=== PATIENT | male | born 1955 | race Caucasian/White ===

== ENCOUNTER 2019-01-14 04:49 | Inpatient (IN) | payer MEDICARE, SELFPAY ==
[2019-01-14] VITALS (13 sets, daily range): BP systolic 101–153; BP diastolic 65–90; PULSE 79–92; RESP 16–22; TEMP 36.6–37.7; O2SAT 92–99; BMI 24.8
--- NOTE | 2019-01-14 05:13 | CT_ITS ---
STUDY: CT ABDOMEN AND PELVIS WITH CONTRAST REASON FOR EXAM: Male, 63 years old. Elevated WBC, abdominal pain, Alzheimer RADIATION DOSAGE (If Supplied By Facility): CTDIvol = ( 16.35 ) mGy, DLP = ( 1398.15 ) mGycm TECHNIQUE: Transaxial 3.75 mm images were obtained from the dome of the diaphragm to the symphysis pubis without oral contrast. 100ML IV Isovue 300 was administered. Sagittal and coronal images were reconstructed. There is image blurring as a result of patient motion. Diagnostic accuracy is somewhat reduced. However, there is substantial diagnostic information remaining available on this study. Individualized dose optimization techniques were used for this CT. COMPARISON: None. FINDINGS: The visualized lung bases are unremarkable. The visualized portions of the heart are within normal limits. Normal liver. Normal gallbladder and extrahepatic biliary system. Normal spleen. Normal pancreas. Normal bilateral adrenal glands. 4 cm right upper renal pole cyst. Normal left kidney. Normal visualized stomach. Reactive changes of small bowel in colon in the right lower abdomen secondary to the appendicitis, otherwise normal small intestine and colon. There is a tubular, thick-walled appendix (>7mm), consistent with acute appendicitis. There are appendicolith along the proximal and mid appendiceal course, there is significant periappendiceal inflammation, fat infiltration and fluid without adjacent abscess formation, formed collection or perforation, the detail is limited due to motion through this level. Normal abdominal aorta. Normal inferior vena cava. Normal retroperitoneum. Normal urinary bladder. There is enlargement of the prostate gland. Trace pelvic fluid and pelvic fat stranding related to appendicitis. There is a small umbilical hernia containing fat. There are diffuse degenerative changes of the visualized lumbar spine, levoscoliosis of the lower lumbar spine CT/Abdomen/Pelvis W IV Cont ONLY IMPRESSION: Acute appendicitis with significant periappendiceal phlegmon without a formed visualized abscess or collection, there is however significant motion degradation limiting the detail. No overt free perforation or obstruction, but microperforation cannot be excluded. Other nonacute findings as outlined above. These findings were discussed on the telephone with Dr. Ring at 640 hrs. EST on 01/14/2019. Electronically Signed: Brenda Maldonado MD at 6:46 EDT , Service support ,
[2019-01-14 05:25] LABS: Absolute Neutrophil Count 12.2 X10^3/uL (2.0-7.7); Basophil# 0.02 X10^3/uL; Basophil% 0.1 % (0-1); Eosinophil# 0.06 X10^3/uL; Eosinophils% 0.4 % (0-5); Hematocrit 44.9 % (40-54); Hemoglobin 15.7 g/dl (13.0-16.5); Lymphocyte % 4.4 % (19-41); Mean Corpuscular Hgb 31.1 pg (27.0-32.0); Mean Corpuscular Volume 88.9 fL (80-94); Mean Platelet Vol. 9.3 fl (6.2-12.0); Monocyte# 0.74 X10^3/uL; Monocyte% 5.4 % (0-10); Neutrophil # 12.22 X10^3/uL (2.7-7.7); Neutrophil % 89.6 % (47-70); Platelet Count 202 K/mm3 (150-450); RBC Distribution Width CV 12.6 % (11.6-14.6); RBC Distribution Width SD 39.9 fl (35.1-43.9); Red Blood Count 5.05 M/mm3 (4.6-6.2); White Blood Count 13.7 K/mm3 (4.4-11.0)
[2019-01-14 05:27] LABS: Differential Indicated SCAN CRITERIA MET; POSITIVE COUNT NO; POSITIVE DIFFERENTIAL YES; POSITIVE MORPHOLOGY NO
[2019-01-14] MEDS: Ondansetron 4 MG/2 ML Vial IV (05:29)
[2019-01-14] MEDS: 0.9% Normal Saline 1,000 ML 1000 ML IV (05:29)
[2019-01-14] MEDS: Morphine 2 MG/ML Syringe IV (05:30)
[2019-01-14 05:34] LABS: ALB/GLOB Ratio 1.3 RATIO (0.9-2.4); AST(SGOT) 17 U/L (15-37); Alanine Aminotransfer ALT/SGPT 17 U/L (16-61); Albumin, Serum 3.8 g/dL (3.2-5.0); Alkaline Phosphatase 73 U/L (45-117); Anion Gap 8 (5-15); BUN 10 mg/dL (7-18); BUN/Creat Ratio 8.5 RATIO (10-20); Calcium,Total 8.7 mg/dL (8.5-10.1); Chloride 109 mmol/L (98-107); Creatinine, Serum 1.17 mg/dL (0.70-1.30); EST Glomerular Filtration Rate 67 mL/min (>60); Est Glom Filt Rate - Afr Amer 82 mL/min (>60); Estimated Creatinine Clearance 70.62 ml/min; Globulin 2.9 g/dL (2.2-4.2); Glucose 163 mg/dL (74-106); Potassium 4.2 mmol/L (3.5-5.1); Protein, Total 6.7 g/dL (6.4-8.2); Sodium Level 141 mmol/L (136-145)
[2019-01-14 05:49] LABS: Differential Comment SCANNED
[2019-01-14 05:59] LABS: White Blood Cells 0 SEEN /hpf (0-5)
[2019-01-14 06:01] LABS: Color, Urine Yellow (Yellow); Glucose, Dipstick Normal (Normal); Ketone-Dipstick 15 mg/dl (Negative); Leukocyte Esterase-Dipstick Negative /ul (Negative); Nitrite-Dipstick Negative (Negative); Occult Blood-Urine 25 /ul (Negative); Protein-Dipstick 15 mg/dl (Negative); Specific Gravity, Urine 1.015 (1.002-1.030); Urine Bilirubin Dipstick Negative (Negative); Urine Clarity Sl. Cloudy (Clear); Urine Urobilinogen Normal (Normal)
[2019-01-14 06:09] LABS: Amorphous Sediment 1+; Bacteria RARE /hpf (None Seen); Squamous Epithelial Cells - UA 0-5 SEEN /hpf (0-5)
[2019-01-14 06:10] LABS: Mucous, Urine 1+ /hpf (<or=2+); Red Blood Cells-Urine 0-5 SEEN /hpf (0-5)
--- NOTE | 2019-01-14 06:56 | ED.VISSUMM ---
- ER Visit Summary Date of Service: 01/14/19 Chief Complaint: Abdominal pain History of Present Illness: The patient is a 63 M who presents with abdominal pain. This began about 3 hours ago. He has had nausea and dry heaving. No diarrhea. No fever. Physical Examination: Afebrile respiratory rate 22 vitals otherwise normal No distress Heart regular rate and rhythm Lungs are clear Abdomen soft Patient does have right lower quadrant tenderness right lower quadrant surgical scar is noted Test Results: Labs notable for white count 13.7. CT of the abdomen and pelvis read as acute appendicitis with periappendiceal phlegmon and appendicoliths. Emergency Department Course and Treatment: Patient was treated with fluids morphine Zofran. Labs as above. CT was read as acute appendicitis. reports that the patient has had a prior appendectomy when he was in [place]. This would be consistent with the location of the surgical scar. Pathology is unclear at this point. Patient was discussed with Dr. Diaz, general surgery who will evaluate the patient. Treatment Plan: [] Disposition: Pending surgical consult Impression: Intra-abdominal phlegmon This note was generated with [employer] dictation software. It may contain incorrect words, spelling, and punctuation that were not noted in review of the chart prior to signing ED Disposition - Plan for ED Patient: Referrals: Jc Ibarra DO [Primary Care Provider] -
--- NOTE | 2019-01-14 07:44 | HP.PCM_ITS ---
History and Physical Date of Admission: 01/14/19 Chief Complaint: abdominal pain History of Present Illness: 63 y\o WM presents with abdominal pain. Noted in the right lower quadrant. Awoke patient from sleep at 3 am. Presented to [facility] ED. CT scan revealed appendicolith and appendicitis (tubular thick-walled appendix) with surrounding inflammatory changes - however, patient states that he had appendectomy (open) as youth and that it was perforated. There is a right lower quadrant incisional scar site. WBC is 13.7K with left shift of differential Past Medical History: Alzheimer's - non verbal Past Surgical History: supposed appendectomy - open nasal surgery Medications: fish oil allergen celebrex pantoprazole mementine buspirone Allergies: Has no known drug allergies Social history: TOB use denies Lives with Review of Systems: General - denies fevers Cardiovascular denies chest pain, denies history of heart attack Pulmonary denies shortness of breath, denies coughing up blood Gastrointestinal as per HPI, had recent colonoscopy - was OK Neurological non verbal due to Alzheimers, denies history of stroke Genitourinary denies burning with urination, denies blood in urine Hematological denies spontaneous/prolonged bleeding, not on any blood thinners aside from fish oil Skin denies open non healing wounds Musculoskeletal denies history of fractures Endocrine denies diabetes Psychological has Alzheimers Physical examination: Vital signs Temp 99.1F HR 82 RR 20 BP 101/65 General WD/WN WM in no apparent distress, alert and oriented, not septic appearing HEENT Normocephalic. EOM intact with sclera clear and no icterus noted. Wearing glasses. Neck is supple with no jugular venous distention noted. Trachea is midline. Lungs normal breath sounds in all lung hernandez. No rales/rhonchi/wheezing noted. No labored breathing noted, such as retractions. No cough heard. Heart normal S1 and S2 auscultated. No rubs/clicks/murmurs noted. Normal size and location by auscultation. Abdomen soft but tender with rebound tenderness in right lower quadrant and positive Rovsing's, well healed incisional scar in right lower quadrant with midline drain site Extremities no calf tenderness noted. No pitting edema noted. Genitourinary/Rectal deferred Skin normal skin integrity. Neurological non focal - Alzheimers - non verbal. Psychological normal affect, patient is calm and appropriate Impression: right lower quadrant abdominal pain leukocytosis with left shift of differential appendicitis by CT scan (despite patient stating that he had appendectomy in remote past) Discussion/Plan: I have discussed the above with the patient and his who is present with him. The patient has signs/symptoms of acute appendicitis, despite surgical history. Will assume that appendix note removed and is still present. I have offered the patient the procedure of laparoscopic appendectomy via diagnostic laparoscopy. If no appendix present - this may be right sided diverticulitis - though doubt this by CT scan - would treat with placement of drain/IV antibiotics and consideration of future surgery once acute infection resolves. I have explained the procedure to the patient. I have counseled the patient as to the risks of the procedure, including but not limited to: infection, bleeding, injury to any blood vessels/nerves, scar tissue, injury to any intrabdominal organs, injury to kidney/ureters, injury to bowel/bladder, intraabdominal abscess/bleeding, hernias at incisional sites, wound infections, possible open procedure, complications of anesthesia, postoperative pneumonia/cardiac problems/blood clots etc. the patient understands. He agrees to proceed. I have answered all questions to the patient?s satisfaction and the patient has no further questions.
--- NOTE | 2019-01-14 08:43 | EKG12_ITS ---
Test Reason : PRE OP Blood Pressure : / mmHG Vent. Rate : 078 BPM Atrial Rate : 078 BPM P-R Int : 176 ms QRS Dur : 090 ms QT Int : 386 ms P-R-T Axes : 029 -07 038 degrees QTc Int : 440 ms Normal sinus rhythm Normal ECG When compared with ECG of 19-NOV-2001 10:12, Vent. rate has decreased BY 42 BPM Questionable change in QRS axis Nonspecific T wave abnormality has replaced inverted T waves in Inferior leads Confirmed by JACLYN IVERSON ([id number]), acquisition editor LATIA FARMER ([id number]) on 01/20/2019 11:01:06 AM Referred By: TAVIA Confirmed By:JACLYN IVERSON
[2019-01-14 09:10] LABS: Partial Thromboplast Time 28.6 Seconds (24.1-36.2)
--- NOTE | 2019-01-14 09:37 | NURSING ---
REPORT CALLED TO MACRINA IN AC
--- NOTE | 2019-01-14 10:35 | APP_PTH ---
PATIENT: BELLA DUONG LOC: MS3 U#:[id number] AGE/SX: 63/M ROOM: MS310 RE01/14/[address]: Dr. Gneny Diaz MD : [id number] BED: 1 DIS: 01/16/2019 SPEC #: [id number] RECD: 01/14/19 16:37 STATUS: GUILLE REQ #: [id number] RENEE: 01/14/19 10:[address]: Genny Diaz DEPT: SURGICAL PATHOLOGY RECD BY: Saeed Stacy ENTERED: 01/17/19 10:19 SP TYPE: APPENDIX OTHR DR: Dr. Jc Ibarra DO Tissues: Appendix, NOS Procedures: Surgery Specimen Level III HEADER OPERATION: Laparoscopic appendectomy PRE-OP DIAGNOSIS: Right lower quadrant abdomen pain; leukocytosis with left shift TISSUE SUBMITTED: Appendix MICROSCOPIC DIAGNOSIS Appendix: Acute appendicitis and periappendicitis. SJ:ronna 01/18/19 MICROSCOPIC DESCRIPTION Slides are reviewed. GROSS DESCRIPTION Received is one container labeled with the patient's name and designated appendix. The specimen consists of an appendix measuring 9 cm in length and up to 0.7 cm in average diameter. No gross perforations are identified. Buckle Gluer sections are submitted in one cassette. / AM:ronna 01/17/19 TC:2 CPT: 08132
[2019-01-14] MEDS: Bupiv/Epi 0.25% 30 ML Vial (12:15)
--- NOTE | 2019-01-14 12:27 | PCM.OPRPT ---
Report of Operation Date of Procedure: 01/14/19 Pre-Operative Diagnosis: right lower quadrant abdominal pain, leukocytosis, appendicitis by CT scan Post-Operative Diagnosis: perforated appendicitis Surgery/Procedure Performed:: laparoscopic appendectomy, lysis of adhesions Description of Surgical Findings:: perforated appendicitis, retrocecal appendix, dense adhesions from patient's previous open surgery for appendicitis requiring prolonged time period to be able to perform laparoscopic appendectomy as these adhesions had to be taken down (lysed) Type of Anesthesia:: General Anesthesiologist: Shruthi Doherty Specimen's removed: appendix Estimated Blood Loss (mL): 20 ml Fluids Replaced: see anesthesia noted Description of Procedure: Of note, this is a complicated procedure, given that patient supposedly had an open appendectomy with perforated appendicitis at the age of 14. At that time, the patient states that he had an open appendectomy and placement of intraabdominal drain. To confirm this, there is an incisional scar in the right lower quadrant and a suprapubic midline indentation with scar for which the patient states that this was the drain site. After informed consent was obtained, the patient was brought into the operating room and placed in the supine position on the operating table. Appropriate time out protocol was followed. The patient was then placed under general anesthesia. The patient?s abdomen was then prepped with a sterile surgical skin preparation and sterile surgical drapes were placed. The infraumbilical skin fold was grasped with penetrating clamps and the skin and subcutaneous tissues were infiltrated with 0.25% marcaine with epinephrine. A skin incision was then made. A Veress needle was then inserted into the intraabdominal cavity and checked to be in the proper position with a normal saline drop test. A CO2 pneumoperitoneum was then created. Once this was achieved, the Veress needle was removed and a 5 mm trocar was placed in its stead. A 5 mm laparoscope was then inserted into the trocar. Careful examination of the intraabdominal contents was then done. As stated above, patient had previous open appendectomy for perforated appendicitis. There were dense omental and mesenteric adhesions to the anterior surface of the abdomen. The adhesions were so dense, such that the lower portion of the abdomen could not be visualized. Therefore the laparoscope itself was used to sweep away the nearest adhesions so that a lower midline 5 mm trocar could be placed under direct visualization. Once, this trocar was placed then the Harmonic scalpel was used to take down adhesions in this location. However, this proved limiting, because of poor visualization of the adhesions from different angles. Therefore an additional 5 mm right lateral trocar was placed, under direct visualization was placed, this was partly in the upper abdomen where there were less intraabdominal adhesions. Using these three trocar sites and triangulation, then much of the intraabdominal adhesion could be taken down. This was done using the harmonic scalpel. This took some time, and thus the surgery took at least twice as long as the normal time to perform the surgery. Once the adhesions were lysed, which took some time, under direct visualization, a 12mm suprapubic trocar was then placed into the intraabdominal cavity. The skin and subcutaneous tissues at these sites were first infiltrated with 0.25% marcaine with epinephrine. The appendix was visualized, it was retrocecal. It was perforated. There was localized peritonitis. Also, of note, the cecum was densely adherent to the right side of the abdomen. Because of these conditions, this further complicated surgery and more time was taken for dissection of the appendix from the surrounding tissues than normal. The appendix was perforated just distal to its base. The base of the appendix was freed by cauterizing the mesentary of the appendix from the free edge to its base with the harmonic scalpel. Once the base of the appendix was freed of surrounding tissues, then the linear gastrointestinal stapling device was brought into the abdominal cavity via the 12mm port and placed across the base of the appendix. The stapling device was fired, thus stapling across the base of the appendix and transecting it simultaneously. The appendix was then placed in an Endobag and this was brought out through the suprapubic trocar. The appendix was then forwarded to Pathology for analysis. The appendiceal stump was carefully examined. There was no evidence of any active bleeding or fecal leakage. The area was vigorously irrigated with normal saline and all irrigant was aspirated out. A 10 mm passive round drain was placed into the intraabdominal cavity via the suprapubic trocar and the tip was placed near the appendiceal stump and then looped into the pelvis. The surrounding tissues were also examined and there was no evidence of any active bleeding or fecal/bile leakage. The intraabdominal cavity was examined and there was no evidence of further inflammation or tissue abnormality. The CO2 pneumoperitoneum was released and all trocars were removed intact. The suprapubic fascia was reapproximated with a figure-of-8 vicryl suture. The catheter was sutured to the skin using nylon suture. All skin incisions were reapproximated with monocryl suture. Cavilon and steristrips were applied to reinforce skin closure and proper sterile dressings were placed. The patient was then extubated and brought to the Recovery Room in stable condition. - Complications none noted - Admit VTE Documentation VTE Present on Admission: Yes VTE Mechan Device Prophylaxis: SCD's
--- NOTE | 2019-01-14 13:45 | CASEMGMT ---
RN CM Face to Face with patient for initial transition planning/care coordination assessment. RN CM introduced self and role at [facility]. Patient lying in bed, alert and confused, patient has Alzheimer's. willing to participate in assessment and is able to answer all questions appropriately. Care providers, pharmacy, and demographics verified. wishes for patient to discharge home, denies need for home health at this time. states she has no further needs or concerns at this time. CM to follow for discharge planning needs that may arise. PCP: Stacey Specialists: Michelle neurologist Preferred Pharmacy: [facility] Insurance: [facility] Prescription Benefit: yes Living Will/HPOA: yes, Leti Dutton LNOK: Living Arrangements: Patient lives with in condo with 1 step to enter. Patient is independent with verbal cues for reminders. Transportation: DME/HHC: Patient denies DME and HHC Disposition Plan: Patient to discharge to home with family support and follow-up plans in place. Rose VALDERRAMAN, RN, CM
[2019-01-14] MEDS: Morphine 4 MG/ML Syringe IV ×3 (15:13→22:48)
[2019-01-14] MEDS: 0.9% NaCl Peripheral Flush Adult/Peds IV (15:18)
--- NOTE | 2019-01-14 16:37 | NURSING ---
PT ANXIOUS, RESTLESS. ATTEMPT TO AMBULATE TO BR X2 TO VOID WITHOUT SUCCESS. BLADDER SCAN = 821ML. DR SQUIRES NOTIFIED. NEW ORDER RECEIVED.
--- NOTE | 2019-01-14 17:43 | NURSING ---
masonry supervisor kimberlee Hurst RN inserted caude catheter after attempted catheter placement x3 RN. Dr. Diaz was at bedside during attempted mcgarry placement and is aware of successful placement by masonry supervisor.
[2019-01-14] MEDS: Ensure Clear 120 ML Liquid PO ×2 (18:30→21:54)
[2019-01-14] MEDS: busPIRone 5 MG Tablet 10 MG PO ×2 (18:37→21:54)
[2019-01-14] MEDS: Memantine Hydrochloride 10 MG Tablet PO ×2 (18:39→21:56)
[2019-01-14] MEDS: Mirtazapine 15 MG Tablet 45 MG PO ×2 (18:40)
[2019-01-14] MEDS: Lactated Ringers 1,000 ML 100 ML IV (20:03)
[2019-01-14] MEDS: Atorvastatin Calcium 20 MG Tablet PO (21:55)
[2019-01-14] MEDS: lamoTRIgine 100 MG Tablet PO (21:58)
[2019-01-15] MEDS: HYDROcodone Bitartrate/Apap 5/325 Tablet PO ×3 (02:11→19:36)
[2019-01-15] MEDS: Morphine 4 MG/ML Syringe IV (02:51)
[2019-01-15 04:02] VITALS: BP 132/75; PULSE 95; RESP 16; TEMP 36.7; O2SAT 94
[2019-01-15] MEDS: Lactated Ringers 1,000 ML 100 ML IV ×2 (05:56→17:38)
[2019-01-15] MEDS: Ibuprofen 600 MG Tablet PO ×3 (06:26→21:51)
[2019-01-15 08:32] VITALS: BP 121/72; PULSE 87; RESP 18; TEMP 37.3; O2SAT 93
[2019-01-15] MEDS: Ascorbic Acid 500 MG Tablet PO (08:37)
[2019-01-15] MEDS: Loratadine 10 MG Tablet 5 MG PO (10:44)
[2019-01-15] MEDS: Memantine Hydrochloride 10 MG Tablet PO ×2 (10:45→21:52)
[2019-01-15] MEDS: busPIRone 5 MG Tablet 10 MG PO ×2 (10:45→21:52)
[2019-01-15] MEDS: Pantoprazole Sodium 40 MG Tablet PO (10:46)
[2019-01-15] MEDS: Sertraline 100 MG Tablet PO (10:46)
[2019-01-15] MEDS: lamoTRIgine 100 MG Tablet PO ×2 (10:46→21:52)
[2019-01-15] MEDS: 0.9% NaCl Peripheral Flush Adult/Peds IV (10:46)
[2019-01-15] MEDS: Ensure Clear 120 ML Liquid PO ×4 (10:47→21:51)
--- NOTE | 2019-01-15 11:40 | PCM.PN.SRG ---
Subjective: Patient disoriented with morphine - Physical Exam Vital Signs Temp Pulse Resp BP Pulse Ox 99.1 F 87 18 121/72 H 93 01/15/19 08:32 01/15/19 08:32 01/15/19 08:32 01/15/19 08:32 01/15/19 08:32 Oxygen Flow Rate (L/min) 4 Oxygen Delivery Method Room Air Weight: 80.74 kg Body Mass Index (BMI) 24.8 Intake and Output for Last 24 Hours 01/13/19 01/14/19 01/15/19 23:59 23:59 23:59 Intake Total 2009 2346 / 2346 Output Total 990 / 990 2045 / 2045 Balance 1020 / 1020 301 / 301 Medical Necessity - Tobacco Use Smoking Status: Never smoker Assessment/Plan POD#1 s/p laparoscopic appendectomy with perforation Plan: still with low grade temps - will keep in hospital another night for IV antibiotics Had difficulty with placement of urinary catheter for urinary retention - placed a Coudet cath - will start on Flomax encourage ambulation advance to regular diet
[2019-01-15 15:43] VITALS: BP 118/68; PULSE 108; RESP 18; TEMP 37.3; O2SAT 95
[2019-01-15] MEDS: Tamsulosin HCl 0.4 MG Capsule PO (17:35)
[2019-01-15 21:35] VITALS: BP 139/87; PULSE 95; RESP 22; TEMP 37.6; O2SAT 94
[2019-01-15] MEDS: Atorvastatin Calcium 20 MG Tablet PO (21:52)
[2019-01-15] MEDS: Mirtazapine 15 MG Tablet 45 MG PO (21:53)
[2019-01-16] MEDS: Lactated Ringers 1,000 ML 100 ML IV (03:41)
[2019-01-16] MEDS: Ibuprofen 600 MG Tablet PO ×2 (03:57→10:14)
[2019-01-16 04:00] VITALS: BP 155/90; PULSE 88; RESP 18; TEMP 36.4; O2SAT 98
[2019-01-16] MEDS: Sertraline 100 MG Tablet PO (08:58)
[2019-01-16] MEDS: Memantine Hydrochloride 10 MG Tablet PO (08:58)
[2019-01-16] MEDS: Pantoprazole Sodium 40 MG Tablet PO (08:58)
[2019-01-16] MEDS: Loratadine 10 MG Tablet 5 MG PO (08:58)
[2019-01-16] MEDS: busPIRone 5 MG Tablet 10 MG PO (08:59)
[2019-01-16] MEDS: Ascorbic Acid 500 MG Tablet PO (09:02)
[2019-01-16 09:06] VITALS: BP 138/74; PULSE 82; RESP 18; TEMP 36.7; O2SAT 95
[2019-01-16] MEDS: Ensure Clear 120 ML Liquid PO (10:14)
[2019-01-16] MEDS: lamoTRIgine 100 MG Tablet PO (10:15)
--- NOTE | 2019-01-16 10:28 | PCM.PN.SRG ---
Subjective: patient feeling much improved, hasn't ambulated yet, states because nurses haven't assisted - Physical Exam General: Alert Oral: Moist Mucosa Neck: Supple Abdomen: Soft - much less tender than yesterday, - - BARRERA output is more serous Vital Signs Temp Pulse Resp BP Pulse Ox 98.0 F 82 18 138/74 H 95 01/16/19 09:06 01/16/19 09:06 01/16/19 09:06 01/16/19 09:06 01/16/19 09:06 Oxygen Flow Rate (L/min) 4 Oxygen Delivery Method Room Air Weight: 80.74 kg Body Mass Index (BMI) 24.8 Intake and Output for Last 24 Hours 01/14/19 01/15/19 01/16/19 23:59 23:59 23:59 Intake Total 2009 4961 / 4961 900 / 900 Output Total 990 / 990 3840 / 3840 1120 / 1120 Balance 1020 / 1020 1121 / 1121 -220 / -220 Medical Necessity - Tobacco Use Smoking Status: Never smoker Assessment/Plan POD#2 s/p laparoscopic appendectomy with perforation Plan: will d/c mcgarry ambulate patient if tolerates above, d/c to home follow up with me later this week
--- NOTE | 2019-01-16 10:53 | DCINST_ITS ---
Discharge Diet: No Restrictions - drink plenty of fluids, avoid carbonated beverages for 1-2 days Discharge Activity: Return to Normal Activity, May not drive while taking narcotic pain medications. Lifting Restrictions: no lifting greater than 20 pounds for 2 weeks Call your doctor if your incision/area has: Continuous Slow Oozing, Foul Smelling Discharge Call your doctor if you observe: Fever of 101 or Higher Additional Dressing/Incision Instructions:: Leave dressings in place. Sponge bathe only (because of drain) Medications to take at Discharge Ascorbic Acid [Vitamin C] 500 mg PO DAILY 01/14/19 Buspirone HCl 10 mg PO BID 01/14/19 Celecoxib [Celebrex] 200 mg PO DAILY 01/14/19 Docusate Sodium [Colace] 100 mg PO BID 01/14/19 Ergocalciferol [Vitamin D] 1,000 unit PO DAILY 01/14/19 Fexofenadine HCl [Daja Allergy] 60 mg PO DAILY 01/14/19 Fish Oil/Dha/Epa [Fish Oil 1,200 mg Fish Oil] 1 tab PO DAILY 01/14/19 Lamotrigine [Lamictal Xr] 100 mg PO BID 01/14/19 Magnesium 250 mg PO BID 01/14/19 Memantine HCl 10 mg PO BID 01/14/19 Mirtazapine 45 mg PO DAILY 01/14/19 Pantoprazole Sodium [Protonix] 40 mg PO DAILY 01/14/19 Psyllium Husk [Metamucil] 0.4 gm PO DAILY 01/14/19 Sertraline HCl 100 mg PO DAILY 01/14/19 Simvastatin 40 mg PO DAILY 01/14/19 Ubidecarenone [Coq-10] 100 mg PO DAILY 01/14/19 Amoxicillin/Potassium Clav [Augmentin 875-125 Tablet] 1 ea PO Q12H PRN PRN 7 Days #14 tab 01/16/19 Hydrocodone/Acetaminophen [Randolph 5-325 Tablet] 1 ea PO Q8 PRN 4 Days #12 tab 01/16/19 Allergies/Adverse Reactions: Allergies No Known Allergies Allergy (Verified 01/14/19 05:01) The following prescriptions were given: Amoxicillin/Potassium Clav [Augmentin 875-125 Tablet] 1 ea PO Q12H PRN PRN 7 Days #14 tab PRN Reason: Wound Care Hydrocodone/Acetaminophen [Randolph 5-325 Tablet] 1 ea PO Q8 PRN 4 Days #12 tab PRN Reason: Mod-Severe Pain (4-07/07) Primary Care Physician: Jc Ibarra DO [Primary Care Provider] - Test Results: Test results from this visit will be discussed in further detail at your follow- up appointment, if applicable. Please Follow Up With: Genny Diaz MD - call When: to be seen on January 19, please call for time, thank you
[2019-01-16 15:25] VITALS: BP 133/81; PULSE 85; RESP 18; TEMP 36.7; O2SAT 96
== END 2019-01-16 15:10 | disposition home or self-care (01) | DRG 337 ==
LOC: ED 07:30 → MS3 07:46
PROVIDERS: Anesthesiology; Admitting Provider Surgery; Emergency Provider Emergency Medicine; Family Provider Preventive Medicine Occupational Medicine; PCP Preventive Medicine Occupational Medicine; Visit Provider Surgery
PROC: 0DTJ4ZZ Resection of Appendix, Percutaneous Endoscopic Approach (ICD-10-PCS; CPT 44970; principal; 2019-01-14 10:15)
DX: K35.32 Acute appendicitis with perforation, localized peritonitis, and gangrene, without abscess (principal); K66.0 Peritoneal adhesions (postprocedural) (postinfection); R33.9 Retention of urine, unspecified; G30.9 Alzheimer's disease, unspecified; F02.80 Dementia in other diseases classified elsewhere, unspecified severity, without behavioral disturbance, psychotic disturbance, mood disturbance, and anxiety
CPT/HCPCS: 74177; 80053; 81001; 82542; 85025; 85730; 88304; 93005; 97802; 99285; J7030; J7040; J7120; P9612; Q9967; A4216; J2405